=== PATIENT | female | born 1965 | race Caucasian/White ===

== ENCOUNTER 2023-03-05 11:53 | Emergency (ER) | payer MEDICARE, SELFPAY ==
[2023-03-05 12:38] VITALS: BP 183/80; PULSE 87; RESP 18; TEMP 36.6; O2SAT 96
--- NOTE | 2023-03-05 13:46 | PC.NURSE ---
pt states she fell down 5-6 stairs yesterday injuring her right shoulder. c/o pain from her axilla up into the right side of her neck. states today at work pain became unbearable and thats what brought her here. pt assisted into gown. pt screamed with raising of right arm.
--- NOTE | 2023-03-05 15:00 | PC.NURSE ---
gown noted on bed. pt eloped from ed without notifying staff.
== END 2023-03-05 15:00 | disposition left against medical advice (07) ==
PROVIDERS: Emergency Provider Physician Assistant
DX: M54.2 Cervicalgia (principal)
CPT/HCPCS: 99199